=== PATIENT | male | born 1990 | race Caucasian/White ===

== ENCOUNTER 2021-03-07 11:58 | Emergency (ER) | payer MEDICAID, OTHER ==
[2021-03-07] MEDS ORDERED: Losartan 50 MG Tab PO ONE (12:25)
[2021-03-07] MEDS ORDERED: Metoprolol Succinate 100 MG Tab.ER PO ONE (12:26)
--- NOTE | 2021-03-07 12:27 | PCM.EKG ---
#1 Interpretation EKG Date: 03/07/21 Time: 12:02 EKG Interpretation Comments: EKG: As interpreted by ER physician: Cale: Nonspecific ST-T wave abnormalities Normal axis No evidence of ST elevation GA Normal sinus rhythm heart rate of 86
--- NOTE | 2021-03-07 12:33 | EDM.PDOC ---
ED HPI GENERAL MEDICAL PROBLEM - General Chief Complaint: Cardiovascular Problem Stated Complaint: HIGH BLOOD PRESSURE Time Seen by Provider: 03/07/21 12:07 Source of Information: Reports: Patient History Limitations: Reports: No Limitations - History of Present Illness INITIAL COMMENTS - FREE TEXT/NARRATIVE: HISTORY AND PHYSICAL: History of present illness: Patient is a 30-year-old male who presents emergency room today with concern of high blood pressure. Patient states that he was working and had an episode of dizziness so sat down and his boss had checked his blood pressure and said it was high. Patient states that he has post be taking losartan 75 mg daily and metoprolol 100 mg daily but states that he has not been taking these medications since 02/21/2021 as he ran out of prescription has not been back home in order to get this refilled. Patient states at this time, his symptoms have resolved and he feels per his usual self. Patient denies any other associated symptoms. Patient denies fever, chills, chest pain, shortness of breath, or cough. Denies headache, neck stiff ness, change in vision, syncope, or near syncope. Denies nausea, vomiting, abdominal pain, diarrhea, constipation, or dysuria. Has not noted any blood in urine or stool. Patient has been eating and drinking appropriately. Review of systems: As per history of present illness and below otherwise all systems reviewed and negative. Past medical history: As per history of present illness and as reviewed below otherwise noncontributory. Surgical history: As per history of present illness and as reviewed below otherwise noncontributory. Social history: See social history for further information Family history: As per history of present illness and as reviewed below otherwise noncontributory. Physical exam: General: Patient is alert, oriented, and in no acute distress. Patient sitting comfortably on exam table. Blood pressure 218/140. Otherwise, vitally stable and reviewed by me. HEENT: Atraumatic, normocephalic, pupils equal and reactive bilaterally, negative for conjunctival pallor or scleral icterus, mucous membranes moist, throat clear, neck supple, nontender, trachea midline. No drooling or trismus noted. No meningeal signs. No hot potato voice noted. Lungs: Clear to auscultation, breath sounds equal bilaterally, chest nontender. Heart: S1S2, regular rate and rhythm without overt murmur Abdomen: Soft, nondistended, nontender. Negative for masses or hepatosplenomegaly. Negative for costovertebral tenderness. Pelvis: Stable nontender. Genitourinary: Deferred. Rectal: Deferred. Skin: Intact, warm, dry. No lesions or rashes noted. Extremities: Atraumatic, negative for cords or calf pain. Neurovascular unremarkable. Neuro: Awake, alert, oriented. Cranial nerves II through XII unremarkable. Cerebellum unremarkable. Motor and sensory unremarkable throughout. Exam nonfocal. Medical Decision Making: Patient is an otherwise healthy 30-year-old male presents emergency room today with concern of an episode of dizziness with high blood pressure. Patient has not been taking his blood pressure medication as prescribed as he ran out of this prescription. Patient is now asymptomatic. Upon arrival to the ED, patient's blood pressure is elevated at 218/140, patient is otherwise vitally stable and well-appearing on exam. Patient is supposed be taking losartan and metoprolol but has not taken his medications today. We will give him his home dose medication, obtain cardiac evaluation, and reassess patient. See Dr. Madsen dictation for specific EKG interpretation. Otherwise, NSR without STEMI. Mild derangements of CBC and CMP unremarkable. Troponin negative. Urinalysis clear of infection and blood. Troponin negative. Upon reevaluation of patient, he remains vitally stable and comfortable throughout stay in ED. I did send patient back in a refill for his hypertensive medications and discussed the importance of establishing care with a primary care provider for further refills. Strict return precautions thoroughly discussed with patient. Voices understanding and is agreeable to plan of care. Denies any further questions or concerns at this time. Diagnostics: EKG, CBC, CMP, UA, CXR, Trop Therapeutics: Losartan, Metoprolol Prescription: Losartan, Metoprolol Impression: Hypertension Medication non compliance Plan: 1. Take medication as prescribed. I would like you to establish care with a primary care provider in order to continue your blood pressure medication prescriptions as discussed. 2. Establish care with a primary care provider as discussed. Return to the ED as needed and as discussed. Definitive disposition and diagnosis as appropriate pending reevaluation and review of above. - Related Data Allergies Allergy/AdvReac Type Severity Reaction Status Date / Time No Known Allergies Allergy Verified 03/07/21 12:08 Home Meds: Home Meds Losartan [Cozaar] 75 mg PO DAILY 03/07/21 [History] Losartan [Cozaar] 75 mg PO DAILY #30 tab 03/07/21 [Rx] Metoprolol Succinate 100 mg PO DAILY 03/07/21 [History] Metoprolol Succinate 100 mg PO DAILY #30 tab.er.24h 03/07/21 [Rx] Past Medical History HEENT History: Reports: None Cardiovascular History: Reports: Hypertension Respiratory History: Reports: None Gastrointestinal History: Reports: None Genitourinary History: Reports: None Musculoskeletal History: Reports: None Neurological History: Reports: None Psychiatric History: Reports: None Endocrine/Metabolic History: Reports: None Hematologic History: Reports: None Immunologic History: Reports: None Oncologic (Cancer) History: Reports: None Dermatologic History: Reports: None - Infectious Disease History Infectious Disease History: Reports: None - Past Surgical History Head Surgeries/Procedures: Reports: None HEENT Surgical History: Reports: None Cardiovascular Surgical History: Reports: None Respiratory Surgical History: Reports: None GI Surgical History: Reports: None Male Surgical History: Reports: None Endocrine Surgical History: Reports: None Neurological Surgical History: Reports: None Musculoskeletal Surgical History: Reports: None Oncologic Surgical History: Reports: None Dermatological Surgical History: Reports: None Social & Family History - Family History Family Medical History: No Pertinent Family History - Tobacco Use Tobacco Use Status *Q: Current Every Day Tobacco User Years of Tobacco use: 14 Packs/Tins Daily: 0.5 - Caffeine Use Caffeine Use: Reports: None - Recreational Drug Use Recreational Drug Use: No ED ROS GENERAL - Review of Systems Review Of Systems: Comprehensive ROS is negative, except as noted in HPI. ED EXAM, GENERAL - Physical Exam Exam: See Below (see dictation) Course - Vital Signs Last Recorded V/S: Last Vital Signs Temp 97.6 F 03/07/21 12:09 Pulse 75 03/07/21 13:18 Resp 17 03/07/21 13:18 BP 213/144 H 03/07/21 13:18 Pulse Ox 95 03/07/21 13:18 - Orders/Labs/Meds Labs: Laboratory Tests 03/07/21 03/07/21 03/07/21 Range/Units 12:05 12:10 12:10 WBC 6.84 (4.0-11.0) K/uL RBC 4.97 (4.50-5.90) M/uL Hgb 13.4 (13.0-17.0) g/dL Hct 40.1 (38.0-50.0) % MCV 80.7 (80.0-98.0) fL MCH 27.0 (27.0-32.0) pg MCHC 33.4 (31.0-37.0) g/dL RDW Std Deviation 37.9 (28.0-62.0) fl RDW Coeff of Lory 13 (11.0-15.0) % Plt Count 130 L (150-400) K/uL MPV 11.40 (7.40-12.00) fL Neut % (Auto) 61.3 (48.0-80.0) % Lymph % (Auto) 30.7 (16.0-40.0) % Mckenzie % (Auto) 5.4 (0.0-15.0) % Eos % (Auto) 2.0 (0.0-7.0) % Baso % (Auto) 0.6 (0.0-1.5) % Neut # (Auto) 4.2 (1.4-5.7) K/uL Lymph # (Auto) 2.1 (0.6-2.4) K/uL Mckenzie # (Auto) 0.4 (0.0-0.8) K/uL Eos # (Auto) 0.1 (0.0-0.7) K/uL Baso # (Auto) 0.0 (0.0-0.1) K/uL Nucleated RBC % 0.0 /100WBC Nucleated RBCs # 0 K/uL Sodium 141 (136-148) mmol/L Potassium 3.5 (3.5-5.1) mmol/L Chloride 103 (98-107) mmol/L Carbon Dioxide 30.2 (21.0-32.0) mmol/L BUN 13 (7.0-18.0) mg/dL Creatinine 1.1 (0.8-1.3) mg/dL Est Cr Clr Drug Dosing 99.55 mL/min Estimated GFR (MDRD) > 60.0 ml/min Glucose 94 (74-106) mg/dL Calcium 9.5 (8.5-10.1) mg/dL Total Bilirubin 0.3 (0.2-1.0) mg/dL AST 19 (15-37) IU/L ALT 26 (14-63) IU/L Alkaline Phosphatase 65 (46-116) U/L Troponin I < 0.050 (0.000-0.056) ng/mL Total Protein 8.4 H (6.4-8.2) g/dL Albumin 3.7 (3.4-5.0) g/dL Globulin 4.7 H (2.6-4.0) g/dL Albumin/Globulin Ratio 0.8 L (0.9-1.6) Urine Color YELLOW Urine Appearance CLEAR Urine pH 7.0 (5.0-8.0) Ur Specific [place] 1.020 (1.001-1.035) Urine Protein TRACE H (NEGATIVE) mg/dL Urine Glucose (UA) NEGATIVE (NEGATIVE) mg/dL Urine Ketones NEGATIVE (NEGATIVE) mg/dL Urine Occult Blood NEGATIVE (NEGATIVE) Urine Nitrite NEGATIVE (NEGATIVE) Urine Bilirubin NEGATIVE (NEGATIVE) Urine Urobilinogen 1.0 (<2.0) EU/dL Ur Leukocyte Esterase NEGATIVE (NEGATIVE) Urine RBC 0-2 (0-2/HPF) Urine WBC 0-1 (0-5/HPF) Ur Epithelial Cells OCCASIONAL (NONE-FEW) Urine Bacteria RARE (NEGATIVE) Meds: Medications Discontinued Medications Generic Name Dose Route Start Last Admin Trade Name Freq PRN Reason Stop Dose Admin Losartan Potassium 75 mg 03/07/21 12:25 03/07/21 12:42 Losartan 50 Mg Tab PO 03/07/21 12:26 75 mg ONETIME ONE Administration Metoprolol Succinate 100 mg 03/07/21 12:26 03/07/21 12:42 Metoprolol Succinate 100 Mg Tab.Er PO 03/07/21 12:27 100 mg ONETIME ONE Administration Departure - Departure Time of Disposition: 12:58 Disposition: Home, Self-Care 01 Clinical Impression: Hypertension, Noncompliance with medication regimen - Discharge Information Prescriptions: Losartan [Cozaar] 75 mg PO DAILY #30 tab Metoprolol Succinate 100 mg PO DAILY #30 tab.er.24h Instructions: How to Take Your Blood Pressure, [id number], Hypertension, Adult, [id number] Forms: ED Department Discharge Additional Instructions: The following information is given to patients seen in the emergency department who are being discharged to home. This information is to outline your options for follow-up care. We provide all patients seen in our emergency department with a follow-up referral. The need for follow-up, as well as the timing and circumstances, are variable depending upon the specifics of your emergency department visit. If you don't have a primary care physician on staff, we will provide you with a referral. We always advise you to contact your personal physician following an emergency department visit to inform them of the circumstance of the visit and for follow-up with them and/or the need for any referrals to a consulting specialist. The emergency department will also refer you to a specialist when appropriate. This referral assures that you have the opportunity for follow-up care with a specialist. All of these measure are taken in an effort to provide you with optimal care, which includes your follow-up. Under all circumstances we always encourage you to contact your private physician who remains a resource for coordinating your care. When calling for follow-up care, please make the office aware that this follow-up is from your recent emergency room visit. If for any reason you are refused follow-up, please contact the [facility] Emergency Department at and asked to speak to the emergency department charge nurse. [facility] [address] [place] [id number] [facility] [address] [place] [id number] 1. Take medication as prescribed. I would like you to establish care with a primary care provider in order to continue your blood pressure medication prescriptions as discussed. 2. Establish care with a primary care provider as discussed. Return to the ED as needed and as discussed. Sepsis Event Note (ED) - Evaluation Sepsis Screening Result: No Definite Risk - Focused Exam Vital Signs: Vital Signs Temp Pulse Pulse Resp BP BP Pulse Ox 03/07/21 13:18 75 17 213/144 H 95 03/07/21 12:42 82 203/144 H 03/07/21 12:09 97.6 F 89 18 218/141 H 99
[2021-03-07 12:52] LABS: BLOOD UREA NITROGEN,BUN 13 mg/dL (7.0-18.0); CARBON DIOXIDE,CO2 30.2 mmol/L (21.0-32.0); CHLORIDE,CL 103 mmol/L (98-107); GLUCOSE RANDOM 94 mg/dL (74-106); POTASSIUM,K 3.5 mmol/L (3.5-5.1); SODIUM,NA 141 mmol/L (136-148)
--- NOTE | 2021-03-07 13:12 | CR ---
INDICATION: Hypertension. FINDINGS: An AP view of the chest was obtained. The cardiac silhouette and pulmonary vasculature are within normal limits. The lungs are clear bilaterally. IMPRESSION: No evidence of acute pulmonary disease. Dictated by Santino King MD @ 03/07/2021 1:11:21 PM (Electronically Signed)
== END 2021-03-07 13:19 | disposition home or self-care (01) ==
LOC: MW.ED 11:58
DX: I10 Essential (primary) hypertension (principal); Z79.899 Other long term (current) drug therapy; Z72.0 Tobacco use; Z91.19 Patient's noncompliance with other medical treatment and regimen
CPT/HCPCS: 36415; 71045; 80053; 81001; 84484; 85025; 93005; 99284; A9270